=== PATIENT | male | born 1975 | race Caucasian/White ===

== ENCOUNTER → 2016-09-07 | Outpatient (CLI) | payer BC ==
--- NOTE | 2016-09-08 09:15 | MRI ---
EXAM DESCRIPTION: MRI left knee. CLINICAL HISTORY: Knee pain. Meniscal tear. Fall injury April 2016 COMPARISON: None. TECHNIQUE: Multi planar, multi sequence MRI evaluation of the left knee FINDINGS: Complete vertical transection mid body medial meniscus seen on axial image 12 and also on the coronal and sagittal PD fat saturated images. 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 A focal high-grade partial-thickness fissure just lateral to the apex with axial image 26 and 27. No subchondral marrow edema. Femoral trochlear cartilage intact Quadriceps tendon intact. Minimal proximal patellar tendinosis. Sequela of [place] with remote fragmentation and acute on chronic distal patellar tendinosis with intratendinous and peritendinous edema and subcutaneous edema ACL intact. There is a small intraligamentous ganglion. PCL, MCL and fibular collateral ligaments are intact Biceps femoris, popliteus and iliotibial band tendons are normal. Tendons of the posteromedial knee are intact Moderate joint effusion without focal synovitis or intra-articular body. 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
== END | disposition home or self-care (01) ==
LOC: MRI 09:51
PROVIDERS: ATTEND Orthopaedic Surgery Adult Reconstructive Orthopaedic Surgery
DX: S83.242A Other tear of medial meniscus, current injury, left knee, initial encounter (principal)

== ENCOUNTER → 2018-09-06 | Outpatient (CLI) | payer BC | LOC: GMAE 10:41 | PROVIDERS: ATTEND Family Medicine | DX: Z00.00 Encounter for general adult medical examination without abnormal findings (principal) ==

== ENCOUNTER → 2019-04-04 | Outpatient (CLI) | payer BC | LOC: GMAE 14:38 | PROVIDERS: ATTEND Family Medicine | DX: R94.8 Abnormal results of function studies of other organs and systems (principal) ==

== ENCOUNTER → 2019-05-16 | Outpatient (CLI) | payer BC | LOC: GMAE 11:27 | PROVIDERS: ATTEND Family Medicine | DX: R94.8 Abnormal results of function studies of other organs and systems (principal) ==

== ENCOUNTER → 2019-11-21 | Outpatient (CLI) | payer BC | LOC: GMAE 12:06 | PROVIDERS: ATTEND Family Medicine | DX: R94.8 Abnormal results of function studies of other organs and systems (principal); E29.1 Testicular hypofunction ==